=== PATIENT | female | born 1970 | race Caucasian/White ===

== ENCOUNTER 2019-03-23 11:39 | Inpatient (IN) | payer OTHER ==
[~2019-03-23] VITALS: Ht 167.6 cm; Wt 105.4 kg
--- NOTE | 2019-03-23 12:48 | NUR ---
PT BIB SELF C/C DIZZINESS X 2 DAYS STS HAS HAD THE SAME IN THE PAST AWAITING FOR DR YEIMY CONCEPCION
--- NOTE | 2019-03-23 13:14 | NUR ---
PLEASE ENTER FULL NAMES OF MAGNETIC TESTING TECHNICIAN/RN Patient data collected by (MAGNETIC TESTING TECHNICIAN):MARIANNA BEYER Assessment reviewed and completed by (RN):TR HIGGINBOTHAM
--- NOTE | 2019-03-23 13:23 | NUR ---
DR MORGAN AT BEDSIDE TO JAMEY
[2019-03-23 13:46] LABS: BASOPHIL % 0.3 % (0-2); PLATELET COUNT 296 x10^3mcL (130-400); RED CELL DISTRIBUTION WIDTH 13.4 % (11.5-14.5)
--- NOTE | 2019-03-23 13:49 | NUR ---
TAKEN TO RADIOLOGY FOR CT
--- NOTE | 2019-03-23 14:15 | NUR ---
BACK FROM CT
[2019-03-23 14:31] LABS: CALCIUM 8.9 mg/dL (8.5-10.1); CARBON DIOXIDE 32.4 mmol/L (21-32); CHLORIDE SERUM 104 mmol/L (98-107); CREATININE SERUM 0.7 mg/dL (0.6-1.0); GFR1 > 60 mL/min; GLUCOSE SERUM 85 mg/dL (74-106); POTASSIUM SERUM 4.1 mmol/L (3.5-5.1); SODIUM SERUM 137 mmol/L (136-145)
[2019-03-23 14:36] LABS: ALBUMIN 3.7 g/dL (3.4-5.0); ALKALINE PHOSPHATASE 77 U/L (46-116); ALT/SGPT 41 U/L (14-59); AST/SGOT 21 U/L (15-37); BILIRUBIN TOTAL 0.4 mg/dL (0.20-1.00); TOTAL PROTEIN, SERUM 7.8 g/dL (6.4-8.2)
[2019-03-23 15:26] LABS: microscopic required? YES; urine erythrocyte TRACE (NEGATIVE)
[2019-03-23 16:20] LABS: CHOLESTEROL/HDL RATIO 3.9
--- NOTE | 2019-03-23 16:37 | NUR ---
PT ADMIT TO TELE ROOM 257B GAVE REPORT TO TRINY
--- NOTE | 2019-03-23 17:05 | NUR ---
RECEIVED PT FROM ED VIA NOEL, CAME IN DUE TO DIZZINESS X2 DAYS. AAOX4. C/O DIZZINESS (ROOM IS SPINNING) WHEN SITTING UP IN THE BED. ABLE TO FOLLOW COMMANDS. SPEECH IS CLEAR. NO SOB NOTED, LUNG SOUNDS CTA. DENIES CHEST PAIN/PRESSURE, SR ON THE MONITOR, HR AT 62. DENIES ABDOMINAL DISCOMFORT. VOIDS. IV SITE PATENT AND INTACT. SIDE RAILS UPX2. CALL LIGHT ON REACH. PRIMARY NURSE RANDALL AT BEDSIDE FOR CONTINUITY OF CARE
--- NOTE | 2019-03-23 17:21 | NUR ---
PATIENT SITTING UP IN BED ALERT ORIENTED, DENIES ANY PAIN OR DISCOMFORT. PER PATIENT SHE IS FEELING BETTER, STILL FEELS A LITTLE DIZZY LIKE THE ROOM IS SPINNING WHEN SHE SITS UP. PATIENT ASSISTED UP TO THE BATHROOM AND BACK TO BED. INSTRUCTED PATIENT TO CALL FOR ASSIST WHEN SHE NEEDS TO GET UP. PATIENT VERBALIZED UNDERSTANDING. HL PATENT. RT A/C. TELE 10 NSR WITH PVC'S. WILL CONTINUE TO MONITOR.
[2019-03-23 17:26] VITALS: BP 128/71
[2019-03-23 17:28] VITALS: Ht 167.6 cm; Wt 105.4 kg
[2019-03-23 19:25] VITALS: BP 120/78
--- NOTE | 2019-03-23 19:51 | NUR ---
RECIEVED PT FROM PREVIOUS SHIFT NURSE. PT A0X4, RESTING IN BED. NO C/O OF SOB, DIFFICULTY BREATHING, OR SIGNS OF ACUTE DISTRESS. DENIES N/V. IV 18 G RAC BED IN LOWEST POSITION. ADVISED TO CALL OR USE CALL LIGHT IF IN NEED OF ASSISTANCE OR GETTING OUT OF BED. WILL CONTINUE TO MONITOR.
--- NOTE | 2019-03-24 00:31 | NUR ---
PT RESTING, RR EVEN AND UNLABORED. NO ACUTE SIGNS OF DISTRESS. CALL LIGHT WITHIN REACH AND BED IN LOWEST POSITION. WILL CONTINUE TO MONITOR
[2019-03-24 04:36] VITALS: BP 119/66
--- NOTE | 2019-03-24 07:15 | NUR ---
RECIEVED REPORT FROM [facility] NURSE. PATIENT OBSERVED SITTING IN BED IN HIGH FOWLERS. NO REPORT OF DIZZINESS AT THIS TIME. IV TO RIGHT AC SALINE LOCKED. NO REPORT OF PAIN. BED IN THE LOW POSITION. PATIENT INSTRUCTED TO UTILIZE THE CALL LIGHT AND CALL FOR THE NURSE PRIOR TO AMBULATING. ALL SAFETY PRECAUTIONS IN PLACE. CALL LIGHT WITHIN REACH. WILL CONTINUE TO MONITOR.
[2019-03-24 07:34] LABS: BASOPHIL % 0.6 % (0-2); PLATELET COUNT 275 x10^3mcL (130-400); RED CELL DISTRIBUTION WIDTH 13.8 % (11.5-14.5)
[2019-03-24 07:47] VITALS: BP 112/76
[2019-03-24 07:50] LABS: CALCIUM 8.8 mg/dL (8.5-10.1); CARBON DIOXIDE 32.2 mmol/L (21-32); CHLORIDE SERUM 104 mmol/L (98-107); CREATININE SERUM 0.8 mg/dL (0.6-1.0); GFR1 > 60 mL/min; GLUCOSE SERUM 91 mg/dL (74-106); MAGNESIUM 2.1 mg/dL (1.8-2.4); PHOSPHOROUS 3.8 mg/dL (2.5-4.9); POTASSIUM SERUM 3.9 mmol/L (3.5-5.1); SODIUM SERUM 138 mmol/L (136-145)
[2019-03-24] MEDS ORDERED: MECLIZINE HCL12.5 MG PO (09:52)
[2019-03-24] MEDS ORDERED: LIPI20 PO (09:52)
[2019-03-24 11:24] VITALS: BP 117/78
[2019-03-24 13:27] VITALS: BP 117/78
--- NOTE | 2019-03-24 16:21 | NUR ---
DISCHARGE EDUCATION AND MEDICATION GIVEN TO PATIENT. INSTRUCTED PATIENT TO AVOID DRIVING OR OPERATING HEAVY MACHINERY DURING TIMES OF DIZZINESS. PATIENT INSTRUCTED ON NEW PRESCRIPTIONS AND PHARMACY LOCATION FOR RESIDENTIAL PLUMBER. PATIENT VERBALIZED UNDERSTANDING. DISCHARGE PACKET AND PRESCRIPTIONS GIVEN TO PATIENT. PROGRAM MANAGER TRANSPORTATION REMOVED FROM PATIENT AND RETURNED TO THE TELE STATION. IV CATHETER REMOVED INTACT. PATIENT AND ACCOMPANIED TO THE LOBBY BY RESOURCE NURSE MARLEEN.
--- NOTE | 2019-03-24 17:50 | NUR ---
ECHOCARDIOGRAM COMPLETED.
== END 2019-03-24 15:41 | disposition home or self-care (01) | DRG 149 ==
LOC: ED 11:39 → DU 15:31 → MU 17:02 → DU 18:36
PROVIDERS: Emergency Medicine; ADMIT Internal Medicine
DX: H81.13 Benign paroxysmal vertigo, bilateral (principal); M19.90 Unspecified osteoarthritis, unspecified site; E78.5 Hyperlipidemia, unspecified; E66.9 Obesity, unspecified; Z68.38 Body mass index [BMI] 38.0-38.9, adult
CPT/HCPCS: 97116-GP; G0378; J7030; J8597; Q0092; Q9967